=== PATIENT | female | born 1935 | race Caucasian/White ===

== ENCOUNTER 2019-01-10 09:24 | Day surgery (SDC) | payer MEDICARE, BC ==
[2019-01-10] VITALS (10 sets, daily range): BP systolic 142–185; BP diastolic 50–69
[~2019-01-10] VITALS: Ht 160 cm; Wt 98.1 kg
[2019-01-10] MEDS ORDERED: diphenhydrAMINE 25mg capsule PO PRN (09:50)
[2019-01-10] MEDS ORDERED: normal saline 1,000 ML IV SCH (09:50)
[2019-01-10 10:25] LABS: BASOPHILS # (AUTO) 0.1 X10'3 (0-0.2); EOSINOPHILS # (AUTO) 0.1 X10'3 (0-0.9); EOSINOPHILS % (AUTO) 1.5 % (0-6); HEMATOCRIT 41.1 % (35.0-45.0); HEMOGLOBIN 13.7 g/dl (12.0-16.0); LYMPHOCYTES # (AUTO) 1.8 X10'3 (1.1-4.8); MEAN CORPUSCULAR HEMOGLOBIN 30.8 PG (27.0-31.0); MEAN CORPUSCULAR HGB CONC 33.4 g/dL (33.0-36.5); MEAN CORPUSCULAR VOLUME 92.2 FL (78-98); MEAN PLATELET VOLUME 7.6 FL (7.4-10.4); MONOCYTES # (AUTO) 0.4 X10'3 (0-0.9); MONOCYTES % (AUTO) 6.6 % (2-12); NEUTROPHILS # (AUTO) 3.8 X10'3 (1.8-7.7); NEUTROPHILS % (AUTO) 61.9 % (42-75); PLATELET COUNT 255 X10'3 (140-440); RED BLOOD COUNT 4.46 X10'6 (4.20-5.60); RED CELL DISTRIBUTION WIDTH 14.9 % (11.5-14.5); WHITE BLOOD COUNT 6.1 X10'3 (4.5-11.0)
[2019-01-10 10:32] LABS: ALBUMIN 3.4 G/DL (3.4-5.0); ANION GAP 10 (8-16); BLOOD UREA NITROGEN 19 MG/DL (7-18); BUN/CREATININE RATIO 23.5 (6.6-38.0); CALCIUM 8.9 MG/DL (8.5-10.1); CHLORIDE 108 MMOL/L (99-107); CREATININE 0.81 MG/DL (0.40-0.90); GLUCOSE 129 MG/DL (70-104); MAGNESIUM 2.1 MG/DL (1.5-2.4); POTASSIUM 3.8 MMOL/L (3.5-5.1); SODIUM 141 MMOL/L (135-145); TOTAL CARBON DIOXIDE 22.7 MMOL/L (24-32); eGFR 67 ML/MIN
[2019-01-10] MEDS ORDERED: CHOL10002 PO (10:42)
[2019-01-10] MEDS ORDERED: CYAN-51 PO (10:42)
[2019-01-10] MEDS ORDERED: PRED5TAB PO (10:42)
[2019-01-10] MEDS ORDERED: DILT180T11 PO (10:42)
[2019-01-10] MEDS ORDERED: MULT-1180 PO (10:42)
[2019-01-10] MEDS ORDERED: GABA-530 PO (10:42)
[2019-01-10] MEDS ORDERED: ACET-2615 PO (10:42)
[2019-01-10] MEDS ORDERED: CA C1TAB95 PO (10:42)
[2019-01-10] MEDS ORDERED: SERT50TA PO (10:42)
[2019-01-10] MEDS ORDERED: ENAL20TA PO (10:42)
[2019-01-10] MEDS ORDERED: midazolam 2 mg/2 ml injection ONE (11:18)
[2019-01-10] MEDS ORDERED: fentaNYL/PF 50MCG/1 ML 2ML syringe ONE (11:18)
[2019-01-10] MEDS ORDERED: normal saline 1000ml 1,000 ML IV SCH (11:35)
[2019-01-10] MEDS ORDERED: HYDROcodone/acetaminophen 5mg/325mg tablet PO PRN (12:05)
[2019-01-10] MEDS ORDERED: ondansetron/PF 4mg/2ml inj IV PRN (12:05)
[2019-01-10] MEDS ORDERED: HYDROcodone/acetaminophen 10/325mg tab PO PRN (12:05)
[2019-01-10] MEDS ORDERED: proCHLORperazine 10 MG/2 ml inj IV PRN (12:05)
== END 2019-01-10 15:20 | disposition home or self-care (01) ==
LOC: SSTAY O 09:24
PROVIDERS: ATTEND Internal Medicine Cardiovascular Disease
DX: R94.39 Abnormal result of other cardiovascular function study (principal); I10 Essential (primary) hypertension; G47.30 Sleep apnea, unspecified; E11.40 Type 2 diabetes mellitus with diabetic neuropathy, unspecified; I48.0 Paroxysmal atrial fibrillation; E66.9 Obesity, unspecified; Z68.39 Body mass index [BMI] 39.0-39.9, adult; Z86.19 Personal history of other infectious and parasitic diseases; Z90.49 Acquired absence of other specified parts of digestive tract; Z98.890 Other specified postprocedural states; Z90.710 Acquired absence of both cervix and uterus; Z79.899 Other long term (current) drug therapy; Z88.2 Allergy status to sulfonamides; Z91.09 Other allergy status, other than to drugs and biological substances
CPT/HCPCS: 36415; 80048; 83735; 85025; 85610; 93005; 93458; 99152; 99153; C1769; C1894; J2250; J3010; J7030; Q0163; A4620; A6258; C1760

== ENCOUNTER 2024-05-12 05:21 | Inpatient (IN) | payer MEDICARE, BC ==
[~2024-05-12] VITALS: Ht 165.1 cm; Wt 86.8 kg
[~2024-05-12 05:21] MED LIST: ACET-2615 PO; CA C1TAB95 PO; CHOL10002 PO; CYAN-104 PO; DILT180T11 PO; ENAL-79 PO; GABA-530 PO; MULT-1180 PO; PRED5TAB PO; SERT50TA PO
[2024-05-12 05:27] VITALS: PULSE 71; RESP 8; O2SAT 100
[2024-05-12 05:46] LABS: BASOPHILS # (AUTO) 0.1 X10'3 (0-0.2); BASOPHILS % (AUTO) 1.3 % (0-1); EOSINOPHILS # (AUTO) 0.1 X10'3 (0-0.9); EOSINOPHILS % (AUTO) 1.2 % (0-6); HEMATOCRIT 26.2 % (35.0-45.0); HEMOGLOBIN 8.8 g/dl (12.0-16.0); LYMPHOCYTES # (AUTO) 1.3 X10'3 (1.1-4.8); MEAN CORPUSCULAR HEMOGLOBIN 30.2 PG (27.0-31.0); MEAN CORPUSCULAR HGB CONC 33.8 g/dL (33.0-36.5); MEAN CORPUSCULAR VOLUME 89.5 FL (78-98); MEAN PLATELET VOLUME 7.5 FL (7.4-10.4); MONOCYTES # (AUTO) 0.2 X10'3 (0-0.9); MONOCYTES % (AUTO) 3.6 % (2-12); NEUTROPHILS # (AUTO) 4.5 X10'3 (1.8-7.7); NEUTROPHILS % (AUTO) 72.9 % (42-75); PLATELET COUNT 280 X10'3 (140-440); RED BLOOD COUNT 2.92 X10'6 (4.20-5.60); RED CELL DISTRIBUTION WIDTH 17.3 % (11.5-14.5); WHITE BLOOD COUNT 6.1 X10'3 (4.5-11.0)
[2024-05-12] MEDS: nitroGLYCERIN 1gm ointment UD TP ONE (05:49)
[2024-05-12 05:57] LABS: ALBUMIN 2.7 G/DL (3.4-5.0); ANION GAP 13 (8-16); BLOOD UREA NITROGEN 41 MG/DL (7-18); BUN/CREATININE RATIO 25.2 (10.0-20.0); CHLORIDE 106 MMOL/L (99-107); CREATININE 1.63 MG/DL (0.40-0.90); POTASSIUM 4.4 MMOL/L (3.5-5.1); SODIUM 141 MMOL/L (135-145); TOTAL CARBON DIOXIDE 22.3 MMOL/L (24-32); eCRCL 21 ML/MIN; eGFR 30 ML/MIN
[2024-05-12 05:59] LABS: ABG BASE EXCESS -6.2 mmol/L (-2.0-3.0); ABG HCO3 18.2 mmol/L (21.0-28.0); ABG OXYGEN SATURATION 99.7 % (94.0-98.0); ABG PH (T) 7.385 (7.350-7.450); ABG PO2 (T) 336.3 mmHg (83.0-108.0); ALLEN'S TEST POSITIVE; FCOHb 0.7 % (0.5-1.5); FHHb 0.3 % (0.0-5.0); FMetHb 0.3 % (0.0-1.5); FO2Hb 98.7 % (94.0-98.0); MODE MASK - BIPAP; PATIENT TEMPERATURE 36.8; RESPIRATORY RATE 12 b/min
[2024-05-12 06:03] LABS: GLUCOSE 161 MG/DL (70-104)
[2024-05-12 06:36] VITALS: PULSE 57; RESP 21; O2SAT 99
[2024-05-12] MEDS ORDERED: pantoprazole 40mg IV 80 MG in normal saline 100ml IV soln 100 ML IV ONE (06:50)
[2024-05-12 06:53] LABS: PRO BRAIN NATRIURETIC PEPTIDE 1034 PG/ML (0-450)
[2024-05-12] MEDS ORDERED: tranexamic acid inj. 1,000 MG in normal saline 100ml IV soln 90 ML IV ONE (06:55)
[2024-05-12] MEDS: tranexamic acid 1gm/0.7% sal. 100 ML IV ONE (07:09)
[2024-05-12] MEDS: furosemide 10 MG/1 ML 10ml inj IV ONE (07:10)
[2024-05-12] MEDS: LORazepam 2 mg/ml vial IM ONE (07:11)
[2024-05-12 07:28] LABS: APTT 26 SECONDS (22-32); INR 1.1 INR; PROTHROMBIN TIME 11.8 SECONDS (9.0-12.0)
[2024-05-12] MEDS ORDERED: iohexol 300mg/ml 100ml inj. ONE (07:30)
[2024-05-12 07:33] LABS: ALANINE AMINOTRANSFERASE 24 U/L (12-78); ALBUMIN/GLOBULIN RATIO 0.6 (1.1-1.5); ALKALINE PHOSPHATASE 111 IU/L (46-116); ASPARTATE AMINO TRANSFERASE 31 U/L (10-37); BILIRUBIN,TOTAL 0.5 MG/DL (0.1-1.0); TOTAL PROTEIN 7.3 G/DL (6.4-8.2)
[2024-05-12] MEDS: pantoprazole 40 MG vial IV ONE (07:38)
[2024-05-12] MEDS: pantoprazole 40MG/NS 100ML BAG 100 ML IV SCH (07:43)
[2024-05-12] MEDS: oxymetazoline 15 ML nasal spray NS ONE ×2 (07:44)
[2024-05-12] MEDS: famotidine/PF 10 mg/ml inj IV ONE (07:46)
[2024-05-12 08:29] LABS: BILIRUBIN,URINE NEGATIVE (Neg); CLARITY,URINE CLEAR (Clear); COLOR,URINE YELLOW (Yellow); GLUCOSE, URINE 250 mg/dl (Neg); KETONES,URINE NEGATIVE (Neg); LEUKOCYTE ESTERASE ,URINE NEGATIVE (Neg); NITRITES, URINE NEGATIVE (Neg); OCCULT BLOOD,URINE NEGATIVE (Neg); PH,URINE 5.5 (4.8-8.0); PROTEIN,URINE 100 mg/dl (Neg); UROBILINOGEN,URINE 0.2 E.U/dL (0.2-1.0)
[2024-05-12 08:39] LABS: UA COLLECTION TYPE NON-SPECIFIED
[2024-05-12 08:41] LABS: BACTERIA,URINE FEW /HPF (Neg); SQUAMOUS EPITHELIAL CELL,UR FEW /LPF (FEW)
[2024-05-12 08:42] LABS: TRANSITIONAL EPI CELLS,URINE FEW /HPF
[2024-05-12] MEDS: azithromycin 250mg tablet PO ONE (10:33)
[2024-05-12 11:04] LABS: BASOPHILS # (AUTO) 0.1 X10'3 (0-0.2); BASOPHILS % (AUTO) 0.8 % (0-1); EOSINOPHILS % (AUTO) 0.2 % (0-6); HEMATOCRIT 24.1 % (35.0-45.0); HEMOGLOBIN 7.9 g/dl (12.0-16.0); LYMPHOCYTES # (AUTO) 0.7 X10'3 (1.1-4.8); LYMPHOCYTES % (AUTO) 10.5 % (21-51); MEAN CORPUSCULAR HEMOGLOBIN 29.2 PG (27.0-31.0); MEAN CORPUSCULAR HGB CONC 32.5 g/dL (33.0-36.5); MEAN PLATELET VOLUME 7.5 FL (7.4-10.4); MONOCYTES # (AUTO) 0.3 X10'3 (0-0.9); MONOCYTES % (AUTO) 4.1 % (2-12); NEUTROPHILS # (AUTO) 5.8 X10'3 (1.8-7.7); NEUTROPHILS % (AUTO) 84.4 % (42-75); PLATELET COUNT 257 X10'3 (140-440); RED BLOOD COUNT 2.68 X10'6 (4.20-5.60); RED CELL DISTRIBUTION WIDTH 17.2 % (11.5-14.5); WHITE BLOOD COUNT 6.8 X10'3 (4.5-11.0)
[2024-05-12] MEDS ORDERED: magnesium sulf-water 2g/50mL 50 ML IV PRN (12:35)
[2024-05-12] MEDS ORDERED: magnesium hydroxide 30ml (MOM) UD suspension PO PRN (12:35)
[2024-05-12] MEDS ORDERED: magnesium sulf-water 4G/100mL 100 ML IV PRN (12:35)
[2024-05-12] MEDS ORDERED: ondansetron/PF 4mg/2ml inj IV PRN (12:35)
[2024-05-12] MEDS ORDERED: magnesium Cl slow-release 64mg tablet PO PRN (12:35)
[2024-05-12] MEDS ORDERED: mag hydrox/Alum hydrox/simeth 30ml oral suspension PO PRN (12:35)
[2024-05-12] MEDS ORDERED: potassium Cl 40MEQ/1/2NS 520ml 520 ML IV PRN (12:35)
[2024-05-12] MEDS ORDERED: potassium Cl 20 mEq SR tablet PO PRN ×2 (12:35)
[2024-05-12 13:59] LABS: HEMOGLOBIN A1C 5.6 % (4.5-6.2)
[2024-05-12 14:22] LABS: MAGNESIUM 1.9 MG/DL (1.5-2.4); POTASSIUM 4.4 MMOL/L (3.5-5.1)
[2024-05-12 17:05] VITALS: BP 139/73; PULSE 93; RESP 19; TEMP 97.5; O2SAT 97
[2024-05-12 18:00] VITALS: BP 170/68; PULSE 60; RESP 19; TEMP 97; O2SAT 98
[2024-05-12] MEDS ORDERED: CLON-850 PO (19:18)
[2024-05-12] MEDS ORDERED: VALS160T2 PO (19:18)
[2024-05-12] MEDS ORDERED: POLY17PO10 PO (19:18)
[2024-05-12] MEDS ORDERED: EMPA10TA PO (19:18)
[2024-05-12] MEDS ORDERED: LABE100T8 PO (19:18)
[2024-05-12] MEDS ORDERED: SENN-360 PO (19:18)
[2024-05-12] MEDS ORDERED: ONDA-103 PO (19:18)
[2024-05-12] MEDS ORDERED: BISA10SU62 RC (19:18)
[2024-05-12] MEDS ORDERED: BISM262O3 PO (19:18)
[2024-05-12] MEDS ORDERED: ACET325T59 PO (19:18)
[2024-05-12] MEDS ORDERED: polyethylene glycol 3350 17gm powd pack PO PRN (19:35)
[2024-05-12] MEDS ORDERED: clonazePAM 0.5mg tablet PO PRN (19:35)
[2024-05-12] MEDS ORDERED: bismuth subsalicylate 262mg/15ml oral suspension PO PRN ×2 (19:35→19:47)
[2024-05-12 19:39] LABS: HEMATOCRIT 27.1 % (35.0-45.0); HEMOGLOBIN 9.3 g/dl (12.0-16.0); MEAN CORPUSCULAR HEMOGLOBIN 30.4 PG (27.0-31.0); MEAN CORPUSCULAR HGB CONC 34.2 g/dL (33.0-36.5); MEAN CORPUSCULAR VOLUME 89.1 FL (78-98); MEAN PLATELET VOLUME 7.6 FL (7.4-10.4); PLATELET COUNT 262 X10'3 (140-440); RED BLOOD COUNT 3.05 X10'6 (4.20-5.60); RED CELL DISTRIBUTION WIDTH 16.5 % (11.5-14.5); WHITE BLOOD COUNT 5.5 X10'3 (4.5-11.0)
[2024-05-12] MEDS: K and/or MAG REPLACEMENT MC SCH (20:00)
[2024-05-12] MEDS ORDERED: ENALAPRIL MALEATE PO SCH (20:00)
[2024-05-12] MEDS ORDERED: labetalol 100mg tablet PO SCH (20:00)
[2024-05-12] MEDS: losartan 50mg tablet PO SCH (21:25)
[2024-05-12] MEDS: gabapentin 100mg capsule PO SCH (21:26)
[2024-05-12] MEDS: docusate sod 100mg capsule PO SCH (21:26)
[2024-05-12] MEDS: furosemide 40mg/4ml inj IV SCH (21:30)
[2024-05-12] MEDS: pantoprazole 40 MG vial IV SCH (21:42)
[2024-05-12 22:00] VITALS: BP 165/57; PULSE 58; RESP 15; TEMP 98.5; O2SAT 96
[2024-05-13] MEDS: Melatonin 3mg tablet PO SCH (00:41)
[2024-05-13 02:55] LABS: TOTAL PROTEIN,URINE RANDOM 73.3 MG/DL
[2024-05-13 06:00] VITALS: BP 169/65; PULSE 60; RESP 16; TEMP 98.6; O2SAT 95
[2024-05-13 06:30] LABS: BASOPHILS # (AUTO) 0.1 X10'3 (0-0.2); BASOPHILS % (AUTO) 1.2 % (0-1); EOSINOPHILS # (AUTO) 0.1 X10'3 (0-0.9); EOSINOPHILS % (AUTO) 1.4 % (0-6); HEMATOCRIT 25.1 % (35.0-45.0); HEMOGLOBIN 8.5 g/dl (12.0-16.0); LYMPHOCYTES # (AUTO) 1.1 X10'3 (1.1-4.8); LYMPHOCYTES % (AUTO) 20.7 % (21-51); MEAN CORPUSCULAR HGB CONC 33.8 g/dL (33.0-36.5); MEAN CORPUSCULAR VOLUME 88.6 FL (78-98); MEAN PLATELET VOLUME 7.2 FL (7.4-10.4); MONOCYTES # (AUTO) 0.3 X10'3 (0-0.9); MONOCYTES % (AUTO) 5.8 % (2-12); NEUTROPHILS # (AUTO) 3.6 X10'3 (1.8-7.7); NEUTROPHILS % (AUTO) 70.9 % (42-75); PLATELET COUNT 244 X10'3 (140-440); RED BLOOD COUNT 2.83 X10'6 (4.20-5.60); RED CELL DISTRIBUTION WIDTH 16.4 % (11.5-14.5); WHITE BLOOD COUNT 5.1 X10'3 (4.5-11.0)
[2024-05-13 07:08] LABS: APTT 25 SECONDS (22-32); INR 1.2 INR; PROTHROMBIN TIME 12.1 SECONDS (9.0-12.0)
[2024-05-13 07:15] LABS: ALANINE AMINOTRANSFERASE 22 U/L (12-78); ALBUMIN 2.3 G/DL (3.4-5.0); ALBUMIN/GLOBULIN RATIO 0.6 (1.1-1.5); ALKALINE PHOSPHATASE 81 IU/L (46-116); ANION GAP 8 (8-16); ASPARTATE AMINO TRANSFERASE 32 U/L (10-37); BILIRUBIN,TOTAL 0.9 MG/DL (0.1-1.0); BLOOD UREA NITROGEN 48 MG/DL (7-18); BUN/CREATININE RATIO 29.8 (10.0-20.0); CALCIUM 7.6 MG/DL (8.5-10.1); CHLORIDE 107 MMOL/L (99-107); CREATININE 1.61 MG/DL (0.40-0.90); FERRITIN 232 NG/ML (8-252); MAGNESIUM 1.8 MG/DL (1.5-2.4); PHOSPHORUS 3.3 MG/DL (2.3-4.5); POTASSIUM 3.8 MMOL/L (3.5-5.1); SODIUM 141 MMOL/L (135-145); TOTAL CARBON DIOXIDE 26.2 MMOL/L (24-32); TOTAL PROTEIN 6.3 G/DL (6.4-8.2); eCRCL 21 ML/MIN; eGFR 30 ML/MIN
[2024-05-13 07:21] LABS: GLUCOSE 111 MG/DL (70-104)
[2024-05-13] MEDS: cyanocobalamin 500mcg tablet PO SCH (07:48)
[2024-05-13] MEDS: multivitamins, therapeutics tablet PO SCH (07:48)
[2024-05-13] MEDS: sertraline 50mg tablet PO SCH (07:48)
[2024-05-13 07:51] LABS: % IRON SATURATION 31 % (11-46); IRON 53 UG/DL (49-151); TOTAL IRON BINDING CAPACITY 172 UG/DL (259-388)
[2024-05-13] MEDS: EMPAGLIFLOZIN 10 MG TABLET PO SCH (07:52)
[2024-05-13 08:00] VITALS: RESP 18; O2SAT 96
[2024-05-13] MEDS ORDERED: VITAMIN D3 PO SCH (08:00)
[2024-05-13] MEDS ORDERED: CA CARBONATE PO SCH (08:00)
[2024-05-13] MEDS ORDERED: non-formulary drug (Diltiazem HCl (Diltiazem ER) 1 CAP) PO SCH (08:00)
[2024-05-13] MEDS ORDERED: CHOLECALCIFEROL PO SCH (08:00)
[2024-05-13] MEDS ORDERED: VIT K PO SCH (08:00)
[2024-05-13 10:00] VITALS: BP 134/75; PULSE 77; RESP 16; TEMP 98.2; O2SAT 99
[2024-05-13] MEDS: labetalol 100mg tablet PO SCH (11:05)
[2024-05-13 12:42] LABS: HEMATOCRIT 27.6 % (35.0-45.0); HEMOGLOBIN 9.2 g/dl (12.0-16.0); MEAN CORPUSCULAR HEMOGLOBIN 29.8 PG (27.0-31.0); MEAN CORPUSCULAR HGB CONC 33.5 g/dL (33.0-36.5); MEAN CORPUSCULAR VOLUME 89.1 FL (78-98); MEAN PLATELET VOLUME 7.4 FL (7.4-10.4); PLATELET COUNT 273 X10'3 (140-440); RED CELL DISTRIBUTION WIDTH 16.6 % (11.5-14.5); WHITE BLOOD COUNT 5.5 X10'3 (4.5-11.0)
[2024-05-13 18:30] VITALS: BP 173/56; PULSE 57; RESP 17; TEMP 97.5; O2SAT 96
[2024-05-13 20:34] LABS: HEMATOCRIT 26.4 % (35.0-45.0); HEMOGLOBIN 8.9 g/dl (12.0-16.0); MEAN CORPUSCULAR HEMOGLOBIN 30.3 PG (27.0-31.0); MEAN CORPUSCULAR HGB CONC 33.8 g/dL (33.0-36.5); MEAN CORPUSCULAR VOLUME 89.6 FL (78-98); MEAN PLATELET VOLUME 7.5 FL (7.4-10.4); PLATELET COUNT 249 X10'3 (140-440); RED BLOOD COUNT 2.94 X10'6 (4.20-5.60); RED CELL DISTRIBUTION WIDTH 17.1 % (11.5-14.5); WHITE BLOOD COUNT 6.1 X10'3 (4.5-11.0)
[2024-05-13] MEDS: pantoprazole 40mg Tablet.DR PO SCH (20:58)
[2024-05-13 22:00] VITALS: BP 175/65; PULSE 56; RESP 16; TEMP 97.7; O2SAT 95
[2024-05-14 00:15] VITALS: BP 172/56; PULSE 56; RESP 16; TEMP 98.1; O2SAT 95
[2024-05-14] MEDS: acetaminophen 325mg tablet PO PRN (01:09)
[2024-05-14] MEDS: hydrALAZINE 20mg/ml inj. IV ONE (01:11)
[2024-05-14 06:19] VITALS: BP 166/63; PULSE 56; RESP 16; TEMP 97.7; O2SAT 95
[2024-05-14 07:30] LABS: BASOPHILS # (AUTO) 0.1 X10'3 (0-0.2); BASOPHILS % (AUTO) 1.5 % (0-1); EOSINOPHILS # (AUTO) 0.1 X10'3 (0-0.9); EOSINOPHILS % (AUTO) 1.8 % (0-6); HEMATOCRIT 24.7 % (35.0-45.0); HEMOGLOBIN 8.3 g/dl (12.0-16.0); LYMPHOCYTES # (AUTO) 0.8 X10'3 (1.1-4.8); LYMPHOCYTES % (AUTO) 17.8 % (21-51); MEAN CORPUSCULAR HEMOGLOBIN 29.9 PG (27.0-31.0); MEAN CORPUSCULAR HGB CONC 33.4 g/dL (33.0-36.5); MEAN CORPUSCULAR VOLUME 89.5 FL (78-98); MEAN PLATELET VOLUME 7.3 FL (7.4-10.4); MONOCYTES # (AUTO) 0.2 X10'3 (0-0.9); NEUTROPHILS # (AUTO) 3.5 X10'3 (1.8-7.7); NEUTROPHILS % (AUTO) 73.9 % (42-75); PLATELET COUNT 231 X10'3 (140-440); RED BLOOD COUNT 2.76 X10'6 (4.20-5.60); RED CELL DISTRIBUTION WIDTH 16.4 % (11.5-14.5); WHITE BLOOD COUNT 4.8 X10'3 (4.5-11.0)
[2024-05-14 07:42] LABS: APTT 25 SECONDS (22-32); INR 1.1 INR; PROTHROMBIN TIME 11.8 SECONDS (9.0-12.0)
[2024-05-14 07:50] LABS: ALANINE AMINOTRANSFERASE 21 U/L (12-78); ALBUMIN 2.1 G/DL (3.4-5.0); ALBUMIN/GLOBULIN RATIO 0.5 (1.1-1.5); ALKALINE PHOSPHATASE 83 IU/L (46-116); ANION GAP 7 (8-16); ASPARTATE AMINO TRANSFERASE 28 U/L (10-37); BLOOD UREA NITROGEN 34 MG/DL (7-18); BUN/CREATININE RATIO 22.8 (10.0-20.0); CALCIUM 7.6 MG/DL (8.5-10.1); CHLORIDE 107 MMOL/L (99-107); CREATININE 1.49 MG/DL (0.40-0.90); GLUCOSE 114 MG/DL (70-104); POTASSIUM 3.8 MMOL/L (3.5-5.1); SODIUM 140 MMOL/L (135-145); TOTAL CARBON DIOXIDE 26.1 MMOL/L (24-32); TOTAL PROTEIN 6.1 G/DL (6.4-8.2); eCRCL 23 ML/MIN; eGFR 33 ML/MIN
[2024-05-14 08:35] LABS: HEMATOCRIT 27.6 % (35.0-45.0); HEMOGLOBIN 9.2 g/dl (12.0-16.0); MEAN CORPUSCULAR HEMOGLOBIN 30.1 PG (27.0-31.0); MEAN CORPUSCULAR HGB CONC 33.4 g/dL (33.0-36.5); MEAN CORPUSCULAR VOLUME 89.9 FL (78-98); MEAN PLATELET VOLUME 7.8 FL (7.4-10.4); PLATELET COUNT 276 X10'3 (140-440); RED BLOOD COUNT 3.07 X10'6 (4.20-5.60); RED CELL DISTRIBUTION WIDTH 16.6 % (11.5-14.5); WHITE BLOOD COUNT 5.1 X10'3 (4.5-11.0)
[2024-05-14] MEDS: furosemide 20 MG/2 ML vial IV SCH (09:14)
[2024-05-14] MEDS: predniSONE 5mg tablet PO SCH (09:16)
[2024-05-14 09:34] VITALS: RESP 18
[2024-05-14 09:51] VITALS: BP_SYST 122; BP_SYST 137; BP_DIAS 50; BP_DIAS 67; PULSE 53; PULSE 75; RESP 16; RESP 18; TEMP 97.7; TEMP 98.9; O2SAT 92; O2SAT 97
[2024-05-14] MEDS ORDERED: oxymetazoline 15 ML nasal spray NS PRN (11:25)
[2024-05-14 11:53] LABS: HEMATOCRIT 26.5 % (35.0-45.0); HEMOGLOBIN 8.9 g/dl (12.0-16.0); MEAN CORPUSCULAR HEMOGLOBIN 30.3 PG (27.0-31.0); MEAN CORPUSCULAR HGB CONC 33.7 g/dL (33.0-36.5); MEAN CORPUSCULAR VOLUME 89.8 FL (78-98); MEAN PLATELET VOLUME 7.2 FL (7.4-10.4); PLATELET COUNT 218 X10'3 (140-440); RED BLOOD COUNT 2.96 X10'6 (4.20-5.60); RED CELL DISTRIBUTION WIDTH 16.8 % (11.5-14.5); WHITE BLOOD COUNT 6.4 X10'3 (4.5-11.0)
== END 2024-05-14 14:50 | disposition home or self-care (01) | DRG 291 ==
LOC: ER 05:22 → ED HOLD 10:45 → ORTHO 4S 17:10
PROVIDERS: ADMIT Family Medicine; ATTEND Family Medicine
PROC: 30233N1 Transfusion of Nonautologous Red Blood Cells into Peripheral Vein, Percutaneous Approach (ICD-10-PCS; principal; 2024-05-12)
PROC: 2Y41X5Z Packing of Nasal Region using Packing Material (ICD-10-PCS; 2024-05-12)
DX: I13.0 Hypertensive heart and chronic kidney disease with heart failure and stage 1 through stage 4 chronic kidney disease, or unspecified chronic kidney disease (principal); I50.33 Acute on chronic diastolic (congestive) heart failure; N17.0 Acute kidney failure with tubular necrosis; Z66 Do not resuscitate; D64.9 Anemia, unspecified; E11.22 Type 2 diabetes mellitus with diabetic chronic kidney disease; N18.9 Chronic kidney disease, unspecified; R04.0 Epistaxis; M32.9 Systemic lupus erythematosus, unspecified; G47.33 Obstructive sleep apnea (adult) (pediatric); Z79.899 Other long term (current) drug therapy; Z88.2 Allergy status to sulfonamides; Z90.49 Acquired absence of other specified parts of digestive tract
CPT/HCPCS: 36415; 36430; 36600; 71045; 71260; 80053; 81001; 82570; 82728; 82803; 83036; 83540; 83550; 83605; 83735; 83880; 83930; 83935; 84100; 84132; 84133; 84156; 84300; 85018; 85025; 85027; 85610; 85730; 86885; 86900; 86901; 86920; 87040; 87070; 87081; 87088; 87207; 93005; 93306; 94660; 97161; 97530; 97535; 99285; A4620; A6213; G0378; J0360; J1940; J2060; J2470; J3490; J7050; J7512; P9016; Q9967